=== PATIENT | female | born 1990 | race Hispanic/Latino ===

== ENCOUNTER 2018-02-26 17:44 | Emergency (ER) | payer OTHER ==
[2018-02-26 18:09] LABS: Bilirubin Negative (Negative); Blood, Urine Large (Negative); Clarity Cloudy (Clear); Glucose, Urine (Dipstick) Negative (Negative); Leukocyte Moderate (Negative); Nitrite Positive (Negative); Protein, Urine (Dipstick) > or equal to 300 mg/dL (Neg-Trace); Specific Gravity, Urine 1.025 (1.005-1.030); Urobilinogen 0.2 mg/dL (0.2-1.0); pH, Urine 5.5 (5.0-9.0)
[2018-02-26 18:12] LABS: Bacteria/HPF 2+ HPF (None Seen); WBC/HPF 21-50 HPF (0-3)
[2018-02-26 18:37] LABS: Pregnancy Test - Urine (BHCG) Negative (Negative); Pregu Control Background? CLEAR/WHITE (CLR/WHITE); Pregu Control Bar Appear? YES (CONTROL BAR); Specific Gravity 1.025 (1.002-1.036)
[2018-02-26] MEDS ORDERED: Ciprofloxacin 500 MG TAB ONE (18:38)
== END 2018-02-26 18:44 | disposition home or self-care (01) ==
LOC: SCSER 17:44
DX: N30.01 Acute cystitis with hematuria (principal); F32.9 Major depressive disorder, single episode, unspecified; F41.9 Anxiety disorder, unspecified
CPT/HCPCS: 81003; 81015; 81025; 87077; 87086; 87186; 99283

== ENCOUNTER 2020-06-12 09:57 | Outpatient (CLI) | payer OTHER ==
--- NOTE | 2020-06-12 10:33 | RAD ---
EXAM: Abdomen one view: HISTORY: Constipation COMPARISON: None FINDINGS: No evidence for large or small bowel obstruction. No free intraperitoneal air or extraluminal gas. No overt calculus. IMPRESSION: No acute process.
== END 2020-06-12 09:58 | disposition home or self-care (01) ==
LOC: BICRAD 09:57
PROVIDERS: ATTEND Physician Assistant
DX: K59.00 Constipation, unspecified (principal)
CPT/HCPCS: 74018

== ENCOUNTER 2021-02-26 10:56 | Outpatient (CLI) | payer OTHER | END 2021-02-26 10:57 | disposition home or self-care (01) | LOC: BICRAD 10:56 | PROVIDERS: ATTEND Family Medicine | DX: R05 Cough (principal) | CPT/HCPCS: 71046 ==

== ENCOUNTER 2021-08-07 15:21 | Emergency (ER) | payer OTHER ==
[2021-08-07 15:50] LABS: #Lymphocytes 0.5 thou/uL (1.20-3.40); #Monocytes 0.1 thou/uL (0.11-0.59); #Neutrophils 3.1 thou/uL (1.40-6.50); %Basophils 0.7 % (0.0-1.0); %Lymphocytes 13.4 % (21.0-51.0); %Monocytes 2.7 % (0.0-10.0); %Neutrophils 83.1 % (42.0-75.0); Hemoglobin 12.7 g/dL (12.0-16.0); Mean Corpuscular HGB CONC 34.6 g/dL (32.0-36.0); Mean Corpuscular Hemoglobin 29.4 pg (27.0-31.0); Mean Corpuscular Volume 84.9 fL (78.0-98.0); Mean Platelet Volume 8.6 fL (7.4-10.4); Platelet Count 123 thou/uL (130-400); RBC Distribution Width 12.6 % (11.5-14.5); Red Blood Cell (RBC) Count 4.33 mill/uL (4.20-5.40); White Blood Cell (WBC) Count 3.8 thou/uL (4.8-10.8)
[2021-08-07] MEDS ORDERED: Cefepime 2 GM VIAL ONE (15:50)
[2021-08-07] MEDS ORDERED: Sodium Chloride 0.9% 100 ML ONE (15:50)
[2021-08-07] MEDS ORDERED: Acetaminophen 325 MG TAB ONE (15:50)
[2021-08-07 16:00] LABS: Bilirubin Negative (Negative); Blood, Urine Trace (Negative); Clarity Clear (Clear); Glucose, Urine (Dipstick) Normal (Negative); Ketone, Urine Negative (Negative); Leukocyte 75 Leu/uL (Negative); Nitrite Negative (Negative); Protein, Urine (Dipstick) Negative (Neg-Trace); RBC/HPF 0-3 HPF (0-3); Renal Epithelial 0-3 HPF (None Seen); Specific Gravity, Urine 1.006 (1.002-1.036); Urobilinogen Normal mg/dL (Less than 2)
[2021-08-07 16:01] LABS: INR-International Normal Ratio 1.3; Prothrombin Time 15.8 sec (12.0-14.7)
[2021-08-07 16:02] LABS: PTT 46.8 sec (22.9-36.1)
[2021-08-07 16:06] LABS: Bacteria/HPF Rare-Few HPF (None Seen)
[2021-08-07 16:13] LABS: ALT (SGPT) 116 U/L (8-55); AST (SGOT) 173 U/L (5-34); Albumin 3.6 g/dL (3.5-5.0); Alkaline Phosphatase 329 U/L (40-110); Anion Gap 13 mmol/L (10-20); BUN (Urea Nitrogen) 6 mg/dL (7.0-18.7); Bilirubin, Total 0.4 mg/dL (0.2-1.2); Calc. Creatinine Clearance 0 mL/min (70-130); Calcium 8.3 mg/dL (7.8-10.44); Carbon Dioxide 21 mmol/L (22-29); Chloride 101 mmol/L (98-107); Globulin 3.5 g/dL (2.4-3.5); Glucose 114 mg/dL (70-105); Potassium 3.7 mmol/L (3.5-5.1); Protein, Total 7.1 g/dL (6.0-8.3); Sodium 131 mmol/L (136-145)
[2021-08-07] MEDS ORDERED: Vancomycin 1 GM/200 ML BAG ONE (16:25)
[2021-08-07 18:47] LABS: SARS-CoV-2 NAA Rapid Test Not Detected (NotDetected)
[2021-08-07 19:03] LABS: Lactic Acid 0.8 mmol/L (0.5-2.2)
[2021-08-07 19:07] LABS: SARS-CoV-2 NAA Rapid Test Not Detected (NotDetected)
== END 2021-08-07 19:22 | disposition short-term general hospital (02) ==
LOC: ERS 15:21
DX: O98.811 Other maternal infectious and parasitic diseases complicating pregnancy, first trimester (principal); A41.9 Sepsis, unspecified organism; O99.891 Other specified diseases and conditions complicating pregnancy; R79.89 Other specified abnormal findings of blood chemistry; Z20.822 Contact with and (suspected) exposure to COVID-19; Z3A.01 Less than 8 weeks gestation of pregnancy
CPT/HCPCS: 0240U; 36415; 71045; 76705; 80053; 81003; 81015; 83605; 84484; 85025; 85610; 85730; 87040; 87086; 93005; 94760; 96365; 96366; 96367; J0692; J3370; J3490; U0002

== ENCOUNTER 2023-01-02 12:08 | Emergency (ER) | payer BC ==
[~2023-01-02 12:08] MED LIST: Iopamidol-370 76% 500 ML 1 ML ONE
[2023-01-02] MEDS ORDERED: diphenhydrAMINE 50 MG/ML VIAL ONE ×3 (12:56→14:32)
[2023-01-02 14:21] LABS: #Lymphocytes 0.7 thou/uL (1.20-3.40); #Monocytes 0.1 thou/uL (0.11-0.59); #Neutrophils 8.8 thou/uL (1.40-6.50); %Eosinophils 0.3 % (0.0-10.0); %Lymphocytes 7.4 % (21.0-51.0); %Monocytes 1.2 % (0.0-10.0); %Neutrophils 91.1 % (42.0-75.0); Hemoglobin 14.7 g/dL (12.0-16.0); Mean Corpuscular HGB CONC 34.6 g/dL (32.0-36.0); Mean Corpuscular Hemoglobin 29.8 pg (27.0-31.0); Mean Corpuscular Volume 86.2 fl (78.0-98.0); Mean Platelet Volume 8.1 fL (7.4-10.4); Platelet Count 150 10x3/uL (130-400); RBC Distribution Width 12.9 % (11.5-14.5); Red Blood Cell (RBC) Count 4.94 mill/uL (4.20-5.40); White Blood Cell (WBC) Count 9.7 10x3/uL (4.8-10.8)
[2023-01-02] MEDS ORDERED: methylPREDNISolone Sod Succ/PF 125 MG/2 ML VIAL ONE ×2 (14:22→14:32)
[2023-01-02] MEDS ORDERED: Famotidine/PF 20 mg/2ml Vial ONE ×2 (14:22→14:32)
[2023-01-02] MEDS ORDERED: Acetaminophen 500 MG TAB ONE (14:52)
[2023-01-02 15:08] LABS: ALT (SGPT) 184 U/L (8-55); AST (SGOT) 164 U/L (5-34); Alkaline Phosphatase 108 U/L (40-110); Anion Gap 14 mmol/L (10-20); BUN (Urea Nitrogen) 7 mg/dL (7.0-18.7); Bilirubin, Total 0.4 mg/dL (0.2-1.2); Calc. Creatinine Clearance 0 mL/min (70-130); Calcium 8.8 mg/dL (7.8-10.44); Carbon Dioxide 25 mmol/L (22-29); Chloride 101 mmol/L (98-107); Estimated GFR 108; Globulin 3.5 g/dL (2.4-3.5); Glucose 87 mg/dL (70-105); Potassium 4.1 mmol/L (3.5-5.1); Protein, Total 7.5 g/dL (6.0-8.3); Sodium 136 mmol/L (136-145)
[2023-01-02 15:13] LABS: Bilirubin Negative (Negative); Blood, Urine Negative (Negative); Clarity Clear (Clear); Glucose, Urine (Dipstick) Normal (Negative); Ketone, Urine 10 mg/dL (Negative); Leukocyte Negative Leu/uL (Negative); Nitrite Negative (Negative); Protein, Urine (Dipstick) Negative (Neg-Trace); Specific Gravity, Urine 1.013 (1.002-1.036); Urobilinogen Normal mg/dL (Less than 2); pH, Urine 6.5 (5.0-9.0)
[2023-01-02 19:45] LABS: BHCG - Serum Negative (NEGATIVE); Pregs Control Background? CLEAR/WHITE (CLR/WHITE); Pregs Control Bar Appear? YES (CONTROL BAR)
[2023-01-02 22:19] LABS: SARS-CoV-2 NAA Rapid Test Not Detected (NotDetected)
== END 2023-01-02 22:56 | disposition short-term general hospital (02) ==
LOC: ERS 12:08
DX: R00.0 Tachycardia, unspecified (principal); T78.40XA Allergy, unspecified, initial encounter; Z20.822 Contact with and (suspected) exposure to COVID-19
CPT/HCPCS: 36415; 71045; 74177; 76705; 80053; 81003; 84703; 85025; 87040; 87086; 93005; 96361; 96372; 96374; 96375; J1200; J2930; Q9967; S0028; U0002

== ENCOUNTER 2023-10-09 07:43 | Outpatient (CLI) | payer BC | END 2023-10-09 07:44 | disposition home or self-care (01) | LOC: RAD 07:43 | PROVIDERS: ATTEND Family Medicine | DX: R05.3 Chronic cough (principal) | CPT/HCPCS: 71046 ==

== ENCOUNTER 2023-10-13 08:14 | Outpatient (CLI) | payer BC ==
[2023-10-13 09:26] LABS: #Basophils 0.1 10x3/uL (0.0-0.2); #Monocytes 0.5 10x3/uL (0.0-1.1); #Neutrophils 8.5 10x3/uL (1.5-8.4); %Basophils 0.6 % (0.0-2.0); %Eosinophils 0.3 % (0.0-6.0); %Lymphocytes 21.8 % (18.0-47.0); %Monocytes 4.2 % (0.0-10.0); %Neutrophils 72.2 % (40.0-75.0); Hemoglobin 15.2 g/dL (12.0-15.5); Mean Corpuscular HGB CONC 32.3 g/dL (32.0-36.0); Mean Corpuscular Hemoglobin 27.4 pg (27.0-33.0); Mean Corpuscular Volume 84.7 fl (81.6-98.3); Platelet Count 334 10x3/uL (150-450); RBC Distribution Width 13.2 % (11.5-14.5); Red Blood Cell (RBC) Count 5.55 10x6/uL (3.90-5.03); White Blood Cell (WBC) Count 11.7 10x3/uL (3.5-10.5)
[2023-10-13 09:50] LABS: BHCG - Serum Negative (NEGATIVE); Pregs Control Background? CLEAR/WHITE (CLR/WHITE); Pregs Control Bar Appear? YES (CONTROL BAR)
[2023-10-13 09:55] LABS: ALT (SGPT) 23 U/L (8-55); AST (SGOT) 18 U/L (5-34); Albumin 4.6 g/dL (3.5-5.0); Alkaline Phosphatase 105 U/L (40-110); Anion Gap 16 mmol/L (10-20); BUN (Urea Nitrogen) 13 mg/dL (7.0-18.7); Bilirubin, Total 0.3 mg/dL (0.2-1.2); Calc. Creatinine Clearance 0 mL/min (70-130); Calcium 9.2 mg/dL (7.8-10.44); Carbon Dioxide 24 mmol/L (22-29); Chloride 104 mmol/L (98-107); Estimated GFR 105; Globulin 3.9 g/dL (2.4-3.5); Glucose 132 mg/dL (70-105); Potassium 4.7 mmol/L (3.5-5.1); Protein, Total 8.5 g/dL (6.0-8.3); Sodium 139 mmol/L (136-145)
== END 2023-10-13 08:15 | disposition home or self-care (01) ==
LOC: LABBT 08:14
PROVIDERS: ATTEND Specialist
DX: Z01.812 Encounter for preprocedural laboratory examination (principal); K80.20 Calculus of gallbladder without cholecystitis without obstruction
CPT/HCPCS: 80053; 84703; 85025

== ENCOUNTER 2023-10-19 09:28 | Day surgery (SDC) | payer BC ==
[2023-10-13 08:33] VITALS: BMI 28.7
[2023-10-19] MEDS ORDERED: Acetaminophen 500 MG TAB ONE (10:29)
[2023-10-19] MEDS ORDERED: Ketorolac Tromethamine 30 MG/ML VIAL ONE (10:29)
[2023-10-19] MEDS ORDERED: Dexamethasone 4 mg/ml Vial ONE (11:57)
[2023-10-19] MEDS ORDERED: PROPOFOL 20 ML ONE (11:57)
[2023-10-19] MEDS ORDERED: Rocuronium Bromide 10 MG/ML (10ML VIAL) ONE ×2 (11:57→13:15)
[2023-10-19] MEDS ORDERED: Lidocaine 2% PF 5 ML VIAL ONE (11:57)
[2023-10-19] MEDS ORDERED: Fentanyl 250 MCG/5 ML VIAL ONE (11:57)
[2023-10-19] MEDS ORDERED: Bupivacaine 0.25% HCL 30 ML VIAL ONE (13:03)
[2023-10-19] MEDS ORDERED: EPINEPHrine 1 MG/ML VIAL ONE (13:03)
[2023-10-19] MEDS ORDERED: Sodium Chloride 0.9% 100 ML ONE (13:08)
[2023-10-19] MEDS ORDERED: CEFAZOLIN 2 GM VIAL ONE (13:08)
[2023-10-19] MEDS ORDERED: Midazolam HCl 2 mg/2 ml Vial ONE (13:10)
[2023-10-19] MEDS ORDERED: SUGAMMADEX SODIUM 200 MG/2 ML VIAL ONE (13:12)
[2023-10-19] MEDS ORDERED: Ondansetron PF 4 MG/2 ML Vial ONE (13:15)
[2023-10-19] MEDS ORDERED: PROPOFOL 200 MG/20 ML VIAL ONE (13:15)
[2023-10-19] MEDS ORDERED: Lidocaine 1% PF 5 ML VIAL ONE (13:15)
[2023-10-19] MEDS ORDERED: HYDROcodone/Acetaminophen 5/325 mg Tablet ONE (15:23)
== END 2023-10-19 16:35 | disposition home or self-care (01) ==
LOC: SDC 09:28
PROVIDERS: ATTEND Specialist
PROC: 0FT44ZZ Resection of Gallbladder, Percutaneous Endoscopic Approach (ICD-10-PCS; principal; 2023-10-19)
DX: K80.10 Calculus of gallbladder with chronic cholecystitis without obstruction (principal); K21.9 Gastro-esophageal reflux disease without esophagitis; Z79.899 Other long term (current) drug therapy; Z88.1 Allergy status to other antibiotic agents; Z91.040 Latex allergy status; Z88.2 Allergy status to sulfonamides
CPT/HCPCS: 88304; C1889; J0171; J1100; J1885; J2001; J2250; J2405; J2704; J3010; J3490; S0020